=== PATIENT | male | born 1985 | race Two or more races ===

== ENCOUNTER 2019-07-13 19:12 | Emergency (ER) | payer OTHER ==
[2019-07-13 19:31] VITALS: BP 133/79
--- NOTE | 2019-07-13 19:31 | ER Document Report ---
HPI - HPI Patient complains to provider of: Right hand pain Time Seen by Provider: 07/13/19 19:30 Onset: Just prior to arrival Pain Level: 3 Context: This 34-year-old male presents to the emergency room stating that he had punched a door 2 weeks ago has pain to the right fifth MCP. Associated Symptoms: None Exacerbated by: Denies Relieved by: Denies - MUSCULOSKELETAL Musculoskeletal: REPORTS: Extremity pain Past Medical History - General Information source: Patient - Social History Smoking Status: Former Smoker Cigarette use (# per day): No Chew tobacco use (# tins/day): No Smoking Education Provided: No Family History: None Patient has homicidal ideation: No Vertical Provider Document - CONSTITUTIONAL Agree With Documented VS: Yes - HEENT HEENT: Atraumatic, Conjuctival Injection, Normocephalic, PERRLA - NECK Neck: Normal Inspection - RESPIRATORY Respiratory: Breath Sounds Normal - CARDIOVASCULAR Cardiovascular: Regular Rate, Regular Rhythm - GI/ABDOMEN Gastrointestinal: Abdomen Soft, Abdomen Non-Tender - REPRODUCTIVE Male Genitalia: Normal Inspection - BACK Back: Normal Inspection - MUSCULOSKELETAL/EXTREMETIES Musculoskeletal/Extremeties: MAEW Course - Vital Signs Vital signs: Temp Pulse Resp BP Pulse Ox 98 F 07/13/19 19:13 - Diagnostic Test Radiology reviewed: Image reviewed - Boxer's fracture fifth MCP right hand Procedures - Immobilization Right Volar Hand Immobilizer type: Volar splint Post-Proc Neuro Vasc Exam: Normal Notes: 07/13/19 19:42 Alignment is still not achieved however capillary refill is intact patient is to be followed up with Dr. Sandoval as his fracture is already 2 weeks old. Discharge - Discharge Clinical Impression: Boxer's fracture with delayed healing Qualifiers: Fracture type: closed Qualified Code(s): S62.339G - Displaced fracture of neck of unspecified metacarpal bone, subsequent encounter for fracture with delayed healing Disposition: HOME, SELF-CARE Instructions: Fractured Fifth Metacarpal ([facility]) Additional Instructions: Must follow-up with orthopedics was provided rest ice elevate compress. Prescriptions: Ibuprofen [Motrin 600 Mg Tablet] 600 mg PO TID #15 tablet Tramadol HCl [Ultram] 50 mg PO Q4 PRN #20 tablet PRN Reason: Referrals: DAMIEN SANDOVAL MD [ACTIVE PROVISIONAL STAFF] - Follow up as needed
--- NOTE | 2019-07-13 19:49 | RADIOLOGY REPORT (SQ) ---
EXAM DESCRIPTION: HAND RIGHT 3 VIEWS IMAGES COMPLETED DATE/TIME: 07/13/2019 7:37 pm REASON FOR STUDY: pain COMPARISON: None. EXAM PARAMETERS: NUMBER OF VIEWS: Three views. TECHNIQUE: AP, lateral and oblique radiographic images acquired of the right hand. LIMITATIONS: None. FINDINGS: MINERALIZATION: Normal. BONES: 5th metacarpal neck fracture with approximately 35 of volar angulation. Moderate periosteal reaction about the fracture. JOINTS: No effusions. SOFT TISSUES: Mild dorsal/ulnar hand soft tissue swelling. OTHER: No other significant finding. IMPRESSION: Subacute 5th metacarpal neck fracture with approximately 35 of volar angulation. TECHNICAL DOCUMENTATION: JOB ID: [id number] 2010 [facility] [place] [facility]- All Rights Reserved Reading location - IP/workstation name: [email or web address]
== END 2019-07-13 20:13 | disposition home or self-care (01) ==
LOC: ER 19:12
DX: S62.336A Displaced fracture of neck of fifth metacarpal bone, right hand, initial encounter for closed fracture (principal); W22.09XA Striking against other stationary object, initial encounter
CPT/HCPCS: 99283